=== PATIENT | female | born 1965 | race Caucasian/White ===

== ENCOUNTER 2022-07-22 07:39 | Observation (INO) ==
--- NOTE | 2022-07-02 12:08 | PAT Medication Instructions ---
Medication Instructions Date of Service July 02, 2022 Home Medications Medication Instructions Recorded Auto Titrating CPAP See Rx Instructions .Route 02/28/21 .COMPLEX #1 ea mecobalamin (vitamin B12) 1,000 1,000 mcg sublingual DAILY #30 tabs 12/21/21 mcg disintegrating tablet,sublingual metformin 1,000 mg tablet 1,000 mg PO BID #180 tabs 12/21/21 levothyroxine 125 mcg tablet See Rx Instructions .Route 06/18/22 .COMPLEX #90 tabs losartan 100 See Rx Instructions .Route 06/18/22 mg-hydrochlorothiazide 12.5 mg .COMPLEX #90 tabs tablet pravastatin 20 mg tablet See Rx Instructions .Route 06/18/22 .COMPLEX #90 tabs dulaglutide 1.5 mg/0.5 mL 1.5 mg (0.5 mL) subcut .weekly #2 06/28/22 subcutaneous pen injector mL (Trulicity) meloxicam 15 mg tablet 15 mg PO DAILY #30 tabs 06/28/22 omeprazole 40 mg capsule,delayed 40 mg PO DAILY #30 caps 06/28/22 release pregabalin 75 mg capsule (Lyrica) 75 mg PO BID #60 caps 06/28/22 Auto Titrating CPAP See Rx Instructions mecobalamin (vitamin B12) 1,000 mcg disintegrating tablet,sublingual 1,000 mcg sublingual DAILY metformin 1,000 mg tablet 1,000 mg PO BID levothyroxine 125 mcg tablet See Rx Instructions .Route .COMPLEX losartan 100 mg-hydrochlorothiazide 12.5 mg tablet See Rx Instructions .Route .COMPLEX pravastatin 20 mg tablet See Rx Instructions .Route .COMPLEX dulaglutide 1.5 mg/0.5 mL subcutaneous pen injector (Trulicity) 1.5 mg (0.5 mL) subcut .weekly meloxicam 15 mg tablet 15 mg PO DAILY omeprazole 40 mg capsule,delayed release 40 mg PO DAILY pregabalin 75 mg capsule (Lyrica) 75 mg PO BID Continue as directed levothyroxine 125 mcg tablet See Rx Instructions .Route .COMPLEX pravastatin 20 mg tablet See Rx Instructions .Route .COMPLEX dulaglutide 1.5 mg/0.5 mL subcutaneous pen injector (Trulicity) 1.5 mg (0.5 mL) subcut .weekly ASK your surgeon for instructions meloxicam 15 mg tablet 15 mg PO DAILY DO NOT take the morning of surgery mecobalamin (vitamin B12) 1,000 mcg disintegrating tablet,sublingual 1,000 mcg sublingual DAILY metformin 1,000 mg tablet 1,000 mg PO BID losartan 100 mg-hydrochlorothiazide 12.5 mg tablet See Rx Instructions .Route .COMPLEX Take morning of surgery With a small sip of water, OTHERWISE NOTHING TO EAT OR DRINK AFTER MIDNIGHT: omeprazole 40 mg capsule,delayed release 40 mg PO DAILY pregabalin 75 mg capsule (Lyrica) 75 mg PO BID Take evening before surgery metformin 1,000 mg tablet 1,000 mg PO BID pregabalin 75 mg capsule (Lyrica) 75 mg PO BID Other Notes If you have any questions please call us at [phone] or [phone] or [phone] or [phone]
--- NOTE | 2022-07-10 09:50 | Anesthesiology Consultation ---
Date of Service July 10, 2022 Assessment & Plan (1) Encounter for pre-operative examination: - COVID screening: Per assessment on 07/10: No known COVID-19 positive contacts. Travel screen negative. Patient vaccinated. Patient developed cold symptoms, sore throat, headache, diarrhea 07/06. Symptoms resolved. Covid test done 07/12 at [facility] d/t recent cold symptoms- result was negative. Surgeon arranging preop COVID testing. Awaiting results. - Rheumatology note (07/02/22): "Patient returns for follow-up. Did not tolerate diclofenac from a GI standpoint. Appreciate the assistance of Dr. Guerrier switching to a different NSAID and also initiating a PPI for GI prophylaxis. Patient is scheduled for right total knee replacement in about 3 weeks and will be holding her NSAIDs prior to surgery. Still having some swelling fullness but she notes she points to her MCPs. Looks as if there is fullness between second and third MCPs and on exam appears to have fullness specially around the bilateral third MCPs. We will get her back in after her surgery to review progress with meloxicam and to discuss next steps. Concerned about the need to initiate a DMARD in the near future. I will schedule her back in early August but this appointment can be adjusted based on her recovery from the surgery." - Check BSG AM DOS - Outpatient joint assessment: Pt currently scheduled for inpatient pathway. If surgeon requests review for outpatient joint pathway, patient is not recommended candidate for outpatient joint program from anesthesia standpoint. Chart Review Chart Review: Acceptable Risk for Surgery and Patient seen in Pre Admission Testing Teaching & Discussion Pre-Anesthesia Teaching/Discussion Notes: Instructed NPO after midnight before surgery,except medications with 15 cc of water. Medication instructions provided according to the [facility] guidelines. History Surgery Operation Date: 07/22/22 08:50 Proposed Procedures p Right Total Knee Arthroplasty - Nghia Ashton MD Height/Weight Height: 5 ft 6.5 in Weight: 122 kg Allergies Allergy/AdvReac Type Severity Reaction Status Date / Time adhesive Allergy Intermediate Hives Verified 07/02/22 10:12 latex Allergy Intermediate Hives Verified 07/02/22 10:12 Penicillins Allergy Intermediate Hives Verified 07/02/22 10:12 Medications Home Medications Medication Instructions Recorded Confirmed Last Taken Auto Titrating CPAP See Rx Instructions .Route 02/28/21 07/02/22 Unknown .COMPLEX #1 ea mecobalamin (vitamin B12) 1,000 1,000 mcg sublingual DAILY #30 tabs 12/21/21 07/02/22 Unknown mcg disintegrating tablet,sublingual metformin 1,000 mg tablet 1,000 mg PO BID #180 tabs 12/21/21 07/02/22 Unknown levothyroxine 125 mcg tablet See Rx Instructions .Route 06/18/22 07/02/22 Unknown .COMPLEX #90 tabs losartan 100 See Rx Instructions .Route 06/18/22 07/02/22 Unknown mg-hydrochlorothiazide 12.5 mg .COMPLEX #90 tabs tablet pravastatin 20 mg tablet See Rx Instructions .Route 06/18/22 07/02/22 Unknown .COMPLEX #90 tabs dulaglutide 1.5 mg/0.5 mL 1.5 mg (0.5 mL) subcut .weekly #2 06/28/22 07/02/22 Unknown subcutaneous pen injector mL (Trulicity) meloxicam 15 mg tablet 15 mg PO DAILY #30 tabs 06/28/22 07/02/22 Unknown omeprazole 40 mg capsule,delayed 40 mg PO DAILY #30 caps 06/28/22 07/02/22 Unknown release pregabalin 75 mg capsule (Lyrica) 75 mg PO BID #60 caps 06/28/22 07/02/22 Unknown Past Medical History Medical History Arthritis Per pt, discussion of arthritis type- suspected OA at this time, further w/u to be considered after surgery Diabetes Diabetic neuropathy Feet GERD (gastroesophageal reflux disease) History of COVID-19 01/2022- Mild cold symptoms > resolved Hypercholesterolemia Hypertension Hypothyroidism Morbid obesity Sleep apnea CPAP (non-compliant- has not been using recently) Exercise / Class Metabolic Activity II 4-5 Yardwork/Stairs/Walk up hill (one FS (no CP, no SOB)) Past Family History Family History Grandmother (Maternal) Breast cancer Heart disease Grandmother (Paternal) Breast cancer Myocardial infarction Father Lung cancer Diabetes Hypertension Mother Colonic polyp Hypertension Grandfather (Paternal) Heart disease Myocardial infarction Denies family history of Ovarian cancer Prostate cancer Alzheimer disease Bipolar disorder Depression COPD (chronic obstructive pulmonary disease) Colorectal cancer Stroke Asthma Past Surgical History Surgical History History of abdominoplasty History of back surgery History of section History of colonoscopy History of endometrial ablation History of partial hysterectomy Hx of cholecystectomy Past Anesthesia History No Hx of Anesthesia Complications and No Family Hx of Anesthesia Complications History of PONV No Hx of PONV and No Hx of Motion Sickness Social History Smoking Status: Never smoker Do You Dip or Chew Tobacco: No Hx Alcohol Use: Yes (Rare) Alcohol type: beer, wine and hard liquor Hx Substance Use: No substance use type: does not use Review of Systems Patient denies chest pain, shortness of breath, dyspnea on exertion, fever, chills, cough, wheezing, palpitations. Physical Exam Vital Signs VITALS BP 104/68 P 84 TEMP 98.4 SP02 96%RA RESP 16 PHYSICAL Full cervical extension range of motion. Full TMJ range of motion. TMD 3.5 finger breaths Mallampati Score 3 Dentition: intact Lungs: clear throughout to auscultation Cardiac: regular rate and rhythm, no murmurs noted Spine: normal Carotid arteries: negative bruit Extremities: no edema Lab Results Anesthesia Preop Results Results Anesthesia Widget: WBC 7.44 K/ul (4.8-10.8) 07/10/22 Hgb 12.8 g/dl (12.0-16.0) 07/10/22 Hct 37.5 % (34.1-44.9) 07/10/22 Plt 287 K/uL (130-400) 07/10/22 Na 141 mmol/L (136-145) 07/10/22 K 4.3 mmol/L (3.5-5.1) 07/10/22 Cl 104 mmol/L (98-107) 07/10/22 CO2 29 mmol/L (21-32) 07/10/22 BUN 14 mg/dl (6-23) 07/10/22 Creat 0.91 mg/dl (0.6-1.2) 07/10/22 Glucose Level 153 mg/dl (70-99(Fasting)) H 07/10/22 PT 9.8 Seconds (9.0-12.0) 07/10/22 PTT 25.9 Seconds (21.0-31.0) 07/10/22 INR 0.9 (0.9-1.1) 07/10/22 HA1c 9.0 % (4.5-5.6) H 07/10/22 Blood Type B Positive 07/10/22 Antibody Screen NEGATIVE 07/10/22 Testing Laboratory Results Surgeon's office made aware of elevated A1C* Electrocardiogram Date: 07/10/22 NSR at 84bpm. Low voltage QRS. PRWP, consider anterior VT vs. lead placement vs. LVH. Chest X-Ray Date: 07/10/22 FINDINGS: There is mild elevation of the right hemidiaphragm. Lungs are clear. There is no pneumothorax or pleural effusion. Cardiac size is normal. Mediastinal contours are normal. There is no evidence for pulmonary edema. IMPRESSION: No acute cardiopulmonary findings. COVID-19 Risk Screen Screening Information COVID-19 Screen Date: 07/10/22 Exposure 21 Days Family/Household +COVID Last 21 Days: No Exposure 10 Days Any COVID Exposure Last 10 Days: No Symptoms Last 10 Days Experienced COVID Sx Last 10 Days: Yes + COVID 0-90 Days COVID + in Last 0-90 Days: No
--- NOTE | 2022-07-18 08:38 | History and Physical Report ---
DATE OF ADMISSION: 07/22/2022 CHIEF COMPLAINT: Persistent and progressive right knee pain and discomfort. HISTORY OF PRESENT ILLNESS: The patient is a 57-year-old female who presents for surgical treatment of her right knee. She has a 10-year history of on and off knee pain. She describes it has gotten w orse over time. She initially aggravated this when she was playing some basketball with her kids rec ently. It was not any real strenuous activity, just playing worse. She has been treated over the pa st several months with all modalities of conservative care without much relief. Pain has become more debilitating. It is global pain. She is tired of the knee pain and would like to have it fixed. PAST MEDICAL HISTORY: Significant for: 1. Hypertension. 2. Elevated cholesterol. 3. Sleep apnea with CPAP machine. 4. Diabetes. 5. Hypothyroidism. 6. Obesity, BMI of 42. 7. Gastroesophageal reflux disease. 8. Low back pain/sciatica. PAST SURGICAL HISTORY: Includes: 1. Back surgery. 2. . 3. Colonoscopy. 4. Cholecystectomy. ALLERGIES: LATEX AND PENICILLIN, WHICH CAUSED HIVES. No known bleeding problems. CURRENT MEDICATIONS: Include: 1. Diclofenac. 2. Trulicity. 3. Levothyroxine. 4. Losartan/hydrochlorothiazide. 5. Vitamin B12. 6. Metformin. 7. Pravastatin. 8. Lyrica. 9. Shingrix vaccine. SOCIAL HISTORY: A 57-year-old female. She is from [place]. She is . One drink per week. Does not smoke. FAMILY HISTORY: Noncontributory. REVIEW OF SYSTEMS: Significant for diabetes. She has been struggling to get this under better contr ol. No chest pain or shortness of breath. No history of DVT or PE. No known bleeding problems. PHYSICAL EXAMINATION: GENERAL: Shows a pleasant middle-aged female, looks in reasonably good health. HEENT: Benign. NECK: Supple. No lymphadenopathy. LUNGS: Clear to auscultation. HEART: Regular rate and rhythm. ABDOMEN: Soft, nontender, nondistended. EXTREMITIES: Grossly neurovascularly intact except as follows: Examination of the right knee reveal s a patient walks with slight bit of a limp. She has got slight varus alignment to her knee. Modera te soft tissue envelope. Small knee effusion. Range of motion is 5-120. No instability. No pain w ith hip motion. X-RAYS: X-rays of the right knee were reviewed. It shows advanced right knee DJD. She has got a co mplete loss of medial joint space with osteophytes in all 3 compartments. ASSESSMENT: A 57-year-old female with a 10-year history of progressive increased right knee pain, un responsive to conservative treatment. She would like to have this fixed. She does have multiple med ical comorbidities including diabetes, hypertension, elevated cholesterol, sleep apnea, hypothyroidis m, etc. She is working to get her diabetes under better control. She would like to have her knee fi xed. PLAN: We will take her to the operating room and do right total knee replacement. The risks and babita efits of this procedure were explained to the patient and include but not limited to DVT, PE, , infection, neurological injury, vascular injury, bleeding problem, pain, limited range of motion, sti ffness, failure to relieve her symptoms, incomplete relief of symptoms, need for further surgery in t he future, etc. The patient understands and desires to proceed. Informed consent was obtained. She knows to hold her metformin, diclofenac, and hydrochlorothiazide on the morning of surgery. She is to take the levothyroxine with a sip of water. Bring her CPAP machine to the hospital. Job ID: [id number]
[~2022-07-22 07:39] MED LIST: ACETAMINOPHEN 500 MG TAB PO SCH; ALLERGY Noted to ORDERED Medication SCH; BUPIVACAINE 0.5 % 5 MG/1 ML PF 10ML VIAL ONE; BUPIVACAINE LIPOSOME/PF 266 MG, BUPIVACAINE/EPINEPHRINE 50 ML, SODIUM CHLORIDE 0.9% 30 ... INFIL SCH; CeleBREX 200 MG CAP PO SCH; EPINEPHrine INJ 1 MG/ML AMP ONE; FAMOTIDINE 20 MG TAB PO SCH; LR 500ML BOLUS, THEN 15ML/HR IV SCH; LR 60ML/HR IV SCH; METOCLOPRAMIDE HCL 10 MG TABLET PO SCH; ROPIVACAINE 0.5% 5 MG/ML 30 ML VIAL ONE; Scopolamine 1 MG TDSY TD SCH; TRANEXAMIC ACID 1,000 MG **IV Intra-op IV SCH; ceFAZolin 2000MG 2,000 MG/15 ML SYR IV SCH
--- NOTE | 2022-07-22 08:33 | History & Physical Bridge Note ---
Date of Service July 22, 2022 History & Physical Bridge Note I have examined the patient, reviewed the History & Physical and in the interval since the performance of the History & Physical I have noted the following changes of clinical significance: no changes noted
[2022-07-22] MEDS ORDERED: Nursing to Pharmacy Communication SCH (08:45)
[2022-07-22] MEDS ORDERED: fentaNYL citrate 100 MCG/2 ML VIAL ONE (09:18)
[2022-07-22] MEDS ORDERED: MIDAZOLAM HCL 1 MG/ML 2ML VIAL ONE (09:18)
[2022-07-22] MEDS ORDERED: PROPOFOL IV EMULSION 10 MG/ML 20 ML VIAL IV ONE ×3 (09:18→12:00)
[2022-07-22] MEDS ORDERED: BUPIVACAINE/EPINEPHRINE 0.25% 1:200,000 30 ML VIAL ONE (10:24)
[2022-07-22] MEDS ORDERED: SODIUM CHLORIDE 0.9% PF 50 ML VIAL ONE (10:24)
[2022-07-22] MEDS ORDERED: BUPIVACAINE LIPOSOME 1.3% 266 MG/20 ML VIAL ONE (10:24)
[2022-07-22] MEDS ORDERED: ceFAZolin 330 MG/ML 1 GM VIAL ONE (10:55)
[2022-07-22] MEDS ORDERED: PHENYLEPHRINE 100MCG/ML 5ML SYR ONE (11:02)
[2022-07-22] MEDS ORDERED: ONDANSETRON INJ 2 MG/ML 2 ML VIAL ONE (11:21)
[2022-07-22] MEDS ORDERED: KETAMINE 50 MG/5 ML SYRINGE ONE (11:21)
[2022-07-22] MEDS ORDERED: GLYCOPYRROLATE 0.2 MG/ML VIAL ONE (11:21)
[2022-07-22] MEDS ORDERED: ceFAZolin 1000MG 1,000 MG/7.5 ML SYR IV ONE (11:47)
[2022-07-22] MEDS ORDERED: ONDANSETRON INJ 2 MG/ML 2 ML VIAL IV PRN (12:44)
[2022-07-22] MEDS ORDERED: FLUMAZENIL 0.1 MG/1 ML 10 ML VIAL IV PRN (12:44)
[2022-07-22] MEDS ORDERED: HYDROmorphone INJ 1 MG/ML SYRINGE IV PRN (12:44)
[2022-07-22] MEDS ORDERED: NALOXONE HCL 0.4 MG/1 ML VIAL/CARP IV PRN ×2 (12:44→14:16)
[2022-07-22] MEDS ORDERED: fentaNYL citrate 100 MCG/2 ML VIAL IV PRN (12:44)
[2022-07-22] MEDS ORDERED: PROMETHAZINE HCL 12.5 MG in SODIUM CHLORIDE 0.9% 50 ML IV PRN (12:44)
[2022-07-22] MEDS ORDERED: ATROPINE SULFATE 0.1 MG/ML 10ML SYR IV PRN (12:44)
[2022-07-22] MEDS ORDERED: ePHEDrine sulfate 50 MG/ML AMP IV PRN (12:44)
--- NOTE | 2022-07-22 12:47 | Operative Report ---
PG Post Operative Report Pre & Post Diagnosis Operation Date: 07/22/22 10:40 Pre-Op Diagnosis: Right knee degenerative joint disease. Post-Op Diagnosis: Right knee degenerative joint disease. I identified the patient and participated in the time-out.: Yes Procedure Operation Date: 07/22/22 10:40 Actual Procedures p Right Total Knee Arthroplasty - Nghia Ashton MD Surgeon Nghia Ashton MD Integration Director Drew Valle PA-C Estimated Blood Loss 50 Findings Consistent with Post-Op Diagnosis Operative findings revealed advanced right knee medial compartment DJD. She had grade 4 [id number] disease medially. She can swallow grade 4 changes elsewhere. Moderate-sized joint effusion. Large soft tissue envelope. Fluids 1500 cc Specimens Right knee sent for pathology. Drains None Anesthesia Type Spinal MAC Complications none Disposition Accompanied Patient To Recovery: No Indications Patient is a 57-year-old female said a long history of right knee pain discomfort describes gotten worse over time patient been to extensive conservative treatment the past which became less successful over time. X-rays show moderate to advanced knee arthritis. She was a markedly debilitated by her disease and elected proceed with surgical treatment. Description of Procedure Operative implants consist of: 1 Biomet Vanguard size 62.5 right posterior stabilized femoral component. 2. Biomet size 67 tibial tray. 3. 12 mm posterior stabilized polyethylene insert. 4. 28 x 8 all Paller patella. The patient was taken the operating, identified, and placed on the operating table supine position but all contact areas were appropriately padded. IV antibiotics tried by anesthesia team. A spinal anesthetic and abductor canal block had been provided in the holding area. Herndon catheter was placed in sterile fashion. Right Tetrick was then placed in the right lower extremities and prepped and draped in usual sterile fashion. The right leg was elevated exsanguinated with use of an Esmarch and the tourniquet was set at 300 mmHg. An anterior approach to the right knee was then performed through a longitudinal incision centered over the patella. Sharp dissection was carried through subcutaneous tissue down the extensor mechanism. Medial parapatellar arthrotomy incision was made. Some subperiosteal dissection was carried out medially. The fat pad was resected from Neath patella tendon. Lateral patellofemoral ligament was released. Patella subluxated laterally. The knee was flexed. The osteophytes taken off distal femur. ACL and PCL then released from the distal femur the tibia subluxated anteriorly. External tibial alignment jig was then placed in the interface the tibia and adjusted 14 mm medially. The proximal tibial cut was made remove about 2 to 3 mm of bone from the most deficient aspect medial tibial plateau. Proximal tibial cut was made. The tibia was sized to a size 67. Attention drawn the femur. The distal femur stem with a sharp drop with intramedullary canal was suction. A right 5 degree valgus cutting guide was placed. Distal femoral cutting block was pinned in place. The distal femoral cut was made to take an additional 3 mm of bone off distal femur. The femur was then sized to a size 62.5. The AP cutting block was pinned parallel to the epicondylar axis which was 3 degrees of external rotation. Anterior cut, anterior chamfer, posterior cut, posterior chamfer cuts were made through the box cutting guide was placed in just slight lateral box cut was made. The trial femoral component was placed. The tibial tray was pinned in maximum external rotation and the drill and stem punch used to create defect in proximal tibia for the tibial tray. The knee was then trialed and 12 mm insert fit most appropriately. Attention drawn the patella. The patella was cleaned of all soft tissues. Patella thickness measured about 20 mm in thickness and was cut down to 12. It was sized to a size 28 patella. The lug holes were drilled for the 28 patella. The lateral osteophyte was removed. Patella button was placed. Knee was taken through range of motion patella tracked nicely with no thumbs test. Attention drawn to place the permanent components. Nupathe all trial components were removed. Bone plug was placed in the distal femur limit blood loss. Double batch Palacos G cement was mixed. A Biomet Vanguard size 62.5 right posterior stabilized femoral component, size 67 tibial tray, 12 mm posterior stabilized polyethylene insert, 31 x 8 all Paller patella were then cemented in place. Knee was brought out into full extension total cement hardened. Final cement check was then performed. Pericapsular tissues were injected with total 100 cc of combination of 20 cc of Exparel, 30 cc of normal saline, 50 cc of quarter percent Marcaine with epinephrine. Patient did receive 1 g tranexamic acid. The tourniquet was let down for final turn time 56 minutes. Hemostasis reduced electrocautery. Extensor mechanism closed with combination 1 PDS suture and 1 Vicryl suture in [id number] fashion. Extensor mechanism checked found to be intact and subcutaneous tissue then closed with 2 Dexon suture in a buried interrupted fashion. Skin was closed skin mari. Leg was then cleaned and dried and a sterile dressing was Xeroform, 4 x 4's, sterile cast padding, Leroy bandage were applied. The patient was then transferred to the recovery room in stable condition. The patient tolerated procedure well and there were no complications. Drew Valle, my physician podiatry assistant, was present for the entire procedure. His assistance was essential and required for appropriate patient positioning, prepping and draping, surgical exposure, performing the technical details of the operation, placement the implants, closure of the wound, and placement of the sterile bandage. I attest to the content of the Intraoperative Record and any orders documented therein. Any exceptions are noted below.
--- NOTE | 2022-07-22 13:52 | Anesthesiology Progress Note ---
Date of Service July 22, 2022 Anesthesia Post Procedure Vital Signs Vital Signs: Temp Pulse Pulse Resp BP BP Pulse Ox 07/22/22 13:35 89 15 162/90 H 94 07/22/22 13:45 36.5 C 90 14 133/84 98 07/22/22 13:25 80 12 122/84 97 07/22/22 13:15 84 15 111/79 97 07/22/22 13:05 88 14 130/89 97 07/22/22 12:55 82 12 130/97 100 07/22/22 12:45 94 H 15 110/76 99 07/22/22 12:36 36.0 C L 97 H 12 128/64 97 07/22/22 08:00 36.6 C 85 18 149/108 H 94 07/22/22 08:00 O2 Del Method O2 Flow Rate 07/22/22 13:35 Room Air 07/22/22 13:45 Room Air 07/22/22 13:25 Room Air 07/22/22 13:15 Room Air 07/22/22 13:05 Room Air 07/22/22 12:55 Oxymask 6 07/22/22 12:45 Oxymask 6 07/22/22 12:36 Oxymask 6 07/22/22 08:00 Room Air, CPAP 07/22/22 08:00 Room Air, CPAP Pain Intensity Right Knee: Pain Intensity: 0 Transfer of Care Handoff Completed per policy Notes Mental Status: alert / awake / arousable Patient Amnestic to Procedure: Yes Nausea / Vomiting: adequately controlled Pain: adequately controlled Airway Patency, RR, SpO2: stable & adequate BP & HR: stable & adequate Hydration State: stable & adequate Neuraxial Anesthesia: was administered and sensory block is resolving Anesthetic Complications: no major complications apparent
[2022-07-22] MEDS ORDERED: DEXTROSE 50% 50 ML SYRINGE IV PRN (14:16)
[2022-07-22] MEDS ORDERED: NON-FORMULARY MEDICATION (Dulaglutide [Trulicity] 1.5 mg/0.5 mL pen injector) SQ SCH (14:16)
[2022-07-22] MEDS ORDERED: CARBOHYDRATES FOR HYPOGLYCEMIA PO PRN (14:16)
[2022-07-22] MEDS ORDERED: GLUCAGON FOR INJ 1 MG VIAL SQ PRN (14:16)
[2022-07-22] MEDS ORDERED: bisacodyL 10 MG SUPP PR PRN (14:16)
[2022-07-22] MEDS ORDERED: GLUCOSE 40% GEL 15 GM TUBE PO PRN (14:16)
[2022-07-22] MEDS ORDERED: PHARMACY GLYCEMIC MGMT CONSULT PRN (14:16)
[2022-07-22] MEDS ORDERED: MAGNESIUM HYDROXIDE SUSP 30 ML UDC PO PRN (14:16)
[2022-07-22] MEDS ORDERED: NON-FORMULARY MEDICATION (Auto Titrating Cpap misc) SCH (14:16)
[2022-07-22] MEDS ORDERED: GLUCOSE 10 TAB/TUBE PO PRN (14:16)
[2022-07-22] MEDS ORDERED: ALUMINUM/MAGNESIUM SUSP 30 ML UDC PO PRN (14:16)
[2022-07-22] MEDS ORDERED: HYDROmorphone INJ 0.5 MG/0.5 ML SYR IV PRN (14:16)
[2022-07-22] MEDS ORDERED: METOCLOPRAMIDE HCL INJ 5 MG/ML 2 ML VIAL IV PRN (14:16)
--- NOTE | 2022-07-22 14:37 | XRay Report ---
XR knee RT 1 or 2V routine CLINICAL HISTORY: Surgical Post Op COMPARISON: MRI of the right knee June 13, 2022. FINDINGS: Alignment of the total right knee arthroplasty is anatomic. There is no periprosthetic fra cture or unexpected radiopaque foreign body. Skin mari are noted. IMPRESSION: Expected findings following total right knee arthroplasty. ACT 112: Negative or not required by law. Electronically signed by: Abhishek Castanon M.D. 07/22/2022 2:35 PM
--- NOTE | 2022-07-22 14:46 | Pharmacy Report ---
Pharmacy Glycemic Short Note 2 - Date of Service July 22, 2022 - Glycemic Short BSG Results (Last 24 hours): 07/22/22 07/22/22 07/22/22 07:58 12:38 14:31 POC Glucose 138 H 110 H 100 H OUTPATIENT ANTIDIABETIC REGIMEN: * Metformin 1g BID * Trulicity 1.5 mg SC weekly * A1c: 9% 07/10/22 ASSESSMENT: * Patient admitted s/p R TKA * Both preop (138 mg/dL) and post op BSGs (110-100 mg/dL) acceptable * Will add a moderate stress novolog scale and conservative lantus scale PLAN FOR INPATIENT GLYCEMIC CONTROL: * Hold outpatient oral diabetes medications * Basal insulin * Lantus per scale SQ this evening (10 units to be given if BSG >160) * Bolus insulin * NovoLog per scale ACHS or Q6hrs while NPO * Goal Range: Low 110 mg/dL - High 140 mg/dL * Correction Factor: 25 mg/dL/unit * Nutritional / Prandial insulin per carb ratio of 1 unit per 8 grams CHO consumed
[2022-07-22] MEDS: INSULIN ASPART PER UNIT SC SCH ×3 (14:48→20:39)
[2022-07-22] MEDS ORDERED: KETOROLAC 30 MG/ML VIAL ONE (14:49)
[2022-07-22] MEDS: ACETAMINOPHEN 500 MG TAB PO SCH ×2 (14:50→21:56)
[2022-07-22] MEDS: KETOROLAC 30 MG/ML VIAL IV SCH ×2 (14:50→19:49)
[2022-07-22] MEDS: SODIUM CHLORIDE 0.9% 1000ML 1,000 ML IV SCH (15:34)
[2022-07-22] MEDS: Scopolamine CHECK PATCH PLACEMENT SCH (15:37)
[2022-07-22] MEDS: oxyCODONE HCL IR 5 MG TAB (IMMEDIATE RELEASE) PO PRN (15:56)
[2022-07-22] MEDS: LEVOTHYROXINE SODIUM 125 MCG TABLET PO SCH (17:07)
[2022-07-22] MEDS: ASCORBIC ACID 500 MG TAB PO SCH (17:08)
[2022-07-22] MEDS: ceFAZolin 2000MG 2,000 MG/15 ML SYR IV SCH (18:07)
[2022-07-22] MEDS ORDERED: TRANEXAMIC ACID / 0.7% NACL 1,000 MG/100 ML BAG IV SCH (18:45)
[2022-07-22] MEDS: SENNA 8.6 MG TAB PO SCH (19:50)
[2022-07-22] MEDS: DOCUSATE SODIUM/SENNA 50/8.6MG TAB PO SCH (19:50)
[2022-07-22] MEDS: ASPIRIN 81 MG ECTAB PO SCH (19:50)
[2022-07-22] MEDS: diphenhydrAMINE Capsule 25 MG CAP PO PRN (19:55)
[2022-07-22] MEDS: LANTUS PER UNIT CHARGE SQ SCH (20:39)
[2022-07-22] MEDS: TAPENTADOL HCL ER 50 MG TABCR PO SCH (20:49)
[2022-07-22] MEDS: PREGABALIN 75 MG CAP PO SCH (20:49)
[2022-07-22] MEDS ORDERED: DOCUSATE SODIUM 100 MG CAP PO SCH (21:00)
[2022-07-23] MEDS: KETOROLAC 30 MG/ML VIAL IV SCH ×4 (00:57→20:03)
[2022-07-23] MEDS: oxyCODONE HCL IR 5 MG TAB (IMMEDIATE RELEASE) PO PRN ×2 (00:57→10:38)
[2022-07-23] MEDS: Scopolamine CHECK PATCH PLACEMENT SCH ×3 (00:57→15:05)
[2022-07-23] MEDS: SODIUM CHLORIDE 0.9% 1000ML 1,000 ML IV SCH (03:01)
[2022-07-23] MEDS: ceFAZolin 2000MG 2,000 MG/15 ML SYR IV SCH (03:01)
[2022-07-23] MEDS: diphenhydrAMINE Capsule 25 MG CAP PO PRN ×2 (05:22→21:37)
[2022-07-23] MEDS: ACETAMINOPHEN 500 MG TAB PO SCH ×3 (05:22→21:37)
[2022-07-23 07:18] LABS: Hematocrit (blood only) 31.7 % (34.1-44.9); Hemoglobin 10.8 g/dl (12.0-16.0); Mean Corpuscular Hemoglobin 31.2 pg (25.0-34.0); Mean Corpuscular Hgb Conc 34.1 g/dL (32.0-36.0); Mean Corpuscular Volume 91.6 fL (80.0-100.0); Mean Platelet Volume 10.5 fL (9.4-12.3); Platelet Count 215 K/uL (130-400); RDW Coefficient of Variation 13.2 % (11.5-14.5); RDW Standard Deviation 43.9 fL (36.4-46.3); Red Blood Count 3.46 M/uL (3.93-5.22); White Blood Count 6.42 K/ul (4.8-10.8)
[2022-07-23] MEDS: ONDANSETRON INJ 2 MG/ML 2 ML VIAL IV PRN (07:35)
[2022-07-23 07:39] LABS: BUN Creatinine Ratio 15.8 (10-20); Calcium 7.9 mg/dl (8.5-10.1); Creatinine Clr Calc Pharmacy 82.9 ml/min; Est GFR (African American) 72.6 ml/min; Est GFR (Non-African American) 62.6 ml/min; Potassium 4.3 mmol/L (3.5-5.1)
[2022-07-23] MEDS: MULTIVITAMIN TAB PO SCH (08:17)
[2022-07-23] MEDS: TAPENTADOL HCL ER 50 MG TABCR PO SCH ×2 (08:17→20:03)
[2022-07-23] MEDS: PREGABALIN 75 MG CAP PO SCH ×2 (08:17→20:03)
[2022-07-23] MEDS: ASPIRIN 81 MG ECTAB PO SCH ×2 (08:17→20:03)
[2022-07-23] MEDS: LEVOTHYROXINE SODIUM 125 MCG TABLET PO SCH (08:18)
[2022-07-23] MEDS: DOCUSATE SODIUM/SENNA 50/8.6MG TAB PO SCH ×2 (08:18→20:04)
[2022-07-23] MEDS: hydroCHLOROthiazide 25 MG TAB PO SCH (08:18)
[2022-07-23] MEDS: PRAVASTATIN SOD 40 MG TAB PO SCH (08:18)
[2022-07-23] MEDS: ASCORBIC ACID 500 MG TAB PO SCH ×2 (08:18→16:35)
[2022-07-23] MEDS: LOSARTAN POTASSIUM 50 MG TAB PO SCH (08:19)
[2022-07-23] MEDS: PANTOprazole 40 MG TAB PO SCH (08:19)
[2022-07-23] MEDS: CYANOCOBALAMIN (B-12) 500 MCG TABLET PO SCH (08:19)
[2022-07-23] MEDS: INSULIN ASPART PER UNIT SC SCH ×4 (09:19→21:00)
--- NOTE | 2022-07-23 14:00 | Progress Notes ---
DATE OF SERVICE: 07/23/2022 SUBJECTIVE: A 57-year-old white female postoperative day 1 from a right knee replacement. She is do ing okay. Had a reasonable night. Having a moderate amount of pain, but the pain medicine seems to be working. She did get up and ambulate a little bit last evening. No chest pain or shortness of br eath. Not feeling dizzy or lightheaded. OBJECTIVE: VITAL SIGNS: Temperature 36.5. Vital signs are stable. PHYSICAL EXAMINATION: GENERAL: Shows a pleasant middle-aged female. She is sitting up in bed, looks reasonably comfortabl e. LUNGS: Clear to auscultation. HEART: Regular rate and rhythm. ABDOMEN: Soft, nontender, nondistended. EXTREMITIES: Grossly neurovascularly intact except as follows: Examination of the right leg reveals the dressing to be clean, dry and intact. She can dorsiflex and plantarflex her foot appropriately. She is neurologically intact. LABORATORY DATA: Hemoglobin 10.8. Hematocrit 31.7. Electrolytes are stable. Sodium is just a cayla le bit low at 132. ASSESSMENT: A 57-year-old white female postoperative day 1 from a right knee replacement, doing reas onably well. Having a moderate amount of pain, but nothing out of the ordinary. She is neurological ly intact. PLAN: 1. DVT prophylaxis includes thigh-high TEDs, SCDs, and aspirin twice a day. 2. PT/OT, weightbear as tolerated. Right total knee protocol. 3. Pain control, doing okay with current pain regimen. 4. Disposition: She is hoping to be discharged to home with some home health. She would like to st ay another day for pain control and therapy. Hopefully, discharge tomorrow after therapy. Job ID: [id number]
[2022-07-23] MEDS ORDERED: Nursing to Pharmacy Communication SCH (15:15)
[2022-07-23] MEDS ORDERED: POLYETHYLENE (MIRALAX) 17 GM PACK PO ONE (18:15)
[2022-07-23] MEDS: SENNA 8.6 MG TAB PO SCH (20:04)
[2022-07-23] MEDS: LANTUS PER UNIT CHARGE SQ SCH (21:02)
[2022-07-24] MEDS: oxyCODONE HCL IR 5 MG TAB (IMMEDIATE RELEASE) PO PRN ×2 (00:16→12:08)
[2022-07-24] MEDS: KETOROLAC 30 MG/ML VIAL IV SCH ×3 (04:00→08:18)
[2022-07-24] MEDS: diphenhydrAMINE Capsule 25 MG CAP PO PRN (04:00)
[2022-07-24] MEDS: ACETAMINOPHEN 500 MG TAB PO SCH (06:14)
[2022-07-24] MEDS: DOCUSATE SODIUM/SENNA 50/8.6MG TAB PO SCH (08:04)
[2022-07-24] MEDS: ONDANSETRON INJ 2 MG/ML 2 ML VIAL IV PRN (08:07)
[2022-07-24] MEDS ORDERED: POLYETHYLENE (MIRALAX) 17 GM PACK PO SCH (09:00)
[2022-07-24] MEDS: hydroCHLOROthiazide 25 MG TAB PO SCH (09:19)
[2022-07-24] MEDS: ASPIRIN 81 MG ECTAB PO SCH (09:20)
[2022-07-24] MEDS: MULTIVITAMIN TAB PO SCH (09:20)
[2022-07-24] MEDS: PRAVASTATIN SOD 40 MG TAB PO SCH (09:20)
[2022-07-24] MEDS: PREGABALIN 75 MG CAP PO SCH (09:20)
[2022-07-24] MEDS: LEVOTHYROXINE SODIUM 125 MCG TABLET PO SCH (09:20)
[2022-07-24] MEDS: ASCORBIC ACID 500 MG TAB PO SCH (09:20)
[2022-07-24] MEDS: CYANOCOBALAMIN (B-12) 500 MCG TABLET PO SCH (09:20)
[2022-07-24] MEDS: LOSARTAN POTASSIUM 50 MG TAB PO SCH (09:20)
[2022-07-24] MEDS: PANTOprazole 40 MG TAB PO SCH (09:20)
[2022-07-24] MEDS: TAPENTADOL HCL ER 50 MG TABCR PO SCH (09:22)
[2022-07-24] MEDS: INSULIN ASPART PER UNIT SC SCH (09:23)
--- NOTE | 2022-07-24 09:58 | Progress Notes ---
DATE OF SERVICE: 07/24/2022. SUBJECTIVE: A 57-year-old female, postoperative day 2 from right knee replacement. She is doing muc h better today. Pain is improved. Therapy went pretty well. She is hoping to go home. OBJECTIVE: VITAL SIGNS: Temperature 36.6. Vital signs are stable. PHYSICAL EXAMINATION: GENERAL: Shows a pleasant middle-aged female. She is sitting in her bedside chair, looks completely comfortable. EXTREMITIES: Examination of the right leg reveals the dressing to be clean, dry and intact. No sign ificant drainage. She can do a straight leg raise. She is neurologically intact. ASSESSMENT: A 57-year-old white female, postoperative day 2 from a right knee replacement, doing wel l. She is getting around a lot better. Pain is controlled. PLAN: 1. DVT prophylaxis including thigh-high TEDs, SCDs, and aspirin twice a day. 2. PT, OT, weightbear as tolerated. Right total knee protocol. 3. Pain control, doing okay with current pain regimen. 4. Disposition: Plan to discharge to home with some home health later today if she does okay in the rapy. Job ID: [id number]
--- NOTE | 2022-07-27 17:32 | Discharge Summary ---
Date of Service July 27, 2022 Discharge Data Procedures Performed Operation Date: 07/22/22 10:40 Actual Procedures p Right Total Knee Arthroplasty - Nghia Ashton MD Hospital Course (1) Status post total right knee replacement: Plan This is a 57 year old patient admitted on 07/22/22 and underwent total knee arthroplasty. She tolerated the procedure well and there were no complications. Transferred to the PACU post op and later to the orthopedic floor for further care. She was given ancef for antibiotic prophylaxis. She was also given MARY stockings, SCDs, and aspirin for DVT prophylaxis. Hemoglobin, hematocrit, and vital signs were monitored during her hospital stay and remained stable. Did not require any blood transfusions. There were no complications during her hospital stay. By post op day #2 the patient was tolerating a diabetic diet, pain was reasonably controlled with oral pain medicine, and she was participating in physical therapy. On post op day #2 the patient was discharged home and set up with home health care. She was given printed discharge instructions including prescriptions for extra strength tylenol, aspirin, ketorolac, zofran, senokot, and oxycodone. Continue physical therapy, weight bearing as tolerated. Continue MARY stockings. Follow up approximately 2 weeks post op or sooner if there are problems or concerns. Coding Level of Care Code None Diagnoses Status post total right knee replacement Z96.651
== END 2022-07-24 12:47 | disposition home health service (06) ==
LOC: PACUINP 07:39 → ASU 07:39 → 3E 15:19
DX: Z68.41 Body mass index [BMI] 40.0-44.9, adult; Z01.818 Encounter for other preprocedural examination; Z79.890 Hormone replacement therapy; Z91.048 Other nonmedicinal substance allergy status; Z01.810 Encounter for preprocedural cardiovascular examination; Z20.822 Contact with and (suspected) exposure to COVID-19; Z79.899 Other long term (current) drug therapy; E78.00 Pure hypercholesterolemia, unspecified; Z79.84 Long term (current) use of oral hypoglycemic drugs; Z91.040 Latex allergy status; M17.11 Unilateral primary osteoarthritis, right knee; Z88.0 Allergy status to penicillin; E66.9 Obesity, unspecified; Z01.812 Encounter for preprocedural laboratory examination; E11.8 Type 2 diabetes mellitus with unspecified complications

== ENCOUNTER 2025-03-09 06:27 | Observation (INO) ==
--- NOTE | 2025-02-10 12:31 | PAT Medication Instructions ---
Medication Instructions Date of Service February 10, 2025 Home Medications Medication Instructions Recorded Auto Titrating CPAP See Rx Instructions .Route 02/28/21 .COMPLEX #1 ea cyanocobalamin (vitamin B-12) 1,000 mcg PO DAILY #90 tabs 01/02/23 1,000 mcg tablet diclofenac sodium 3 % topical gel 1 applic topical BID #100 grams 08/15/23 pen needle, diabetic 32 gauge x #100 ea 03/03/24 5/32" (BD Ultra-Fine Thelma Pen Needle) hydrocodone 5 mg-acetaminophen 325 1 tab PO TID #21 tabs 07/05/24 mg tablet Lantus Solostar U-100 Insulin 100 See Rx Instructions .Route 08/06/24 unit/mL (3 mL) subcutaneous pen .COMPLEX #15 mL (insulin glargine) aspirin 81 mg chewable tablet See Rx Instructions .Route 10/28/24 .COMPLEX #90 tabs Medium Res Med Sleep apnea mask #1 ea 11/02/24 nirmatrelvir 300 mg (150 mg See Rx Instructions PO .COMPLEX 11/15/24 x2)-ritonavir 100 mg tablet,dose #30 ea pack (Paxlovid) blood-glucose sensor (FreeStyle #6 ea 01/07/25 Yumi 3 Sensor device) bupropion HCl 200 mg tablet,12 hr See Rx Instructions .Route 01/07/25 sustained-release .COMPLEX #180 ea fluticasone propionate 50 2 spray intranasal HS #9.9 grams 01/07/25 mcg/actuation nasal spray,suspension (Allergy Relief (fluticasone)) levothyroxine 125 mcg tablet See Rx Instructions .Route 01/07/25 .COMPLEX #90 tabs losartan 100 1 tab PO DAILY #90 tabs 01/07/25 mg-hydrochlorothiazide 25 mg tablet omeprazole 40 mg capsule,delayed 40 mg PO DAILY #90 caps 01/07/25 release pregabalin 75 mg capsule (Lyrica) 75 mg PO BID #180 caps 01/07/25 rosuvastatin 5 mg tablet 5 mg PO DAILY #90 tabs 01/07/25 semaglutide 2 mg/dose (8 mg/3 mL) 2 mg (0.75 mL) subcut WK #9 mL 01/07/25 subcutaneous pen injector trazodone 50 mg tablet 100 mg (2 x 50 mg) PO HS #180 tabs 01/07/25 cyanocobalamin (vitamin B-12) 1,000 mcg tablet 1,000 mcg PO DAILY diclofenac sodium 3 % topical gel 1 applic topical BID hydrocodone 5 mg-acetaminophen 325 mg tablet 1 tab PO TID Lantus Solostar U-100 Insulin 100 unit/mL (3 mL) subcutaneous pen (insulin glargine) See Rx Instructions .Route .COMPLEX aspirin 81 mg chewable tablet See Rx Instructions .Route .COMPLEX nirmatrelvir 300 mg (150 mg x2)-ritonavir 100 mg tablet,dose pack (Paxlovid) See Rx Instructions PO .COMPLEX bupropion HCl 200 mg tablet,12 hr sustained-release See Rx Instructions .Route .COMPLEX fluticasone propionate 50 mcg/actuation nasal spray,suspension (Allergy Relief (fluticasone)) 2 spray intranasal HS levothyroxine 125 mcg tablet See Rx Instructions .Route .COMPLEX losartan 100 mg-hydrochlorothiazide 25 mg tablet 1 tab PO DAILY omeprazole 40 mg capsule,delayed release 40 mg PO DAILY pregabalin 75 mg capsule (Lyrica) 75 mg PO BID rosuvastatin 5 mg tablet 5 mg PO DAILY semaglutide 2 mg/dose (8 mg/3 mL) subcutaneous pen injector 2 mg (0.75 mL) subcut WK trazodone 50 mg tablet 100 mg (2 x 50 mg) PO HS creatine monohydrate 1 dose PO DAILY ASK your prescriber and surgeon aspirin 81 mg chewable tablet See Rx Instructions .Route .COMPLEX nirmatrelvir 300 mg (150 mg x2)-ritonavir 100 mg tablet,dose pack (Paxlovid) See Rx Instructions PO .COMPLEX STOP 7 days prior to surgery semaglutide 2 mg/dose (8 mg/3 mL) subcutaneous pen injector 2 mg (0.75 mL) subcut WK STOP taking 2 weeks before surgery (or as soon as possible if surgery is within 2 weeks) creatine monohydrate 1 dose PO DAILY STOP taking 24 hours before surgery diclofenac sodium 3 % topical gel 1 applic topical BID DO NOT take the morning of surgery cyanocobalamin (vitamin B-12) 1,000 mcg tablet 1,000 mcg PO DAILY losartan 100 mg-hydrochlorothiazide 25 mg tablet 1 tab PO DAILY Take morning of surgery With a small sip of water, OTHERWISE NOTHING TO EAT OR DRINK AFTER MIDNIGHT: hydrocodone 5 mg-acetaminophen 325 mg tablet 1 tab PO TID bupropion HCl 200 mg tablet,12 hr sustained-release See Rx Instructions .Route .COMPLEX levothyroxine 125 mcg tablet See Rx Instructions .Route .COMPLEX omeprazole 40 mg capsule,delayed release 40 mg PO DAILY pregabalin 75 mg capsule (Lyrica) 75 mg PO BID rosuvastatin 5 mg tablet 5 mg PO DAILY Take evening before surgery hydrocodone 5 mg-acetaminophen 325 mg tablet 1 tab PO TID bupropion HCl 200 mg tablet,12 hr sustained-release See Rx Instructions .Route .COMPLEX fluticasone propionate 50 mcg/actuation nasal spray,suspension (Allergy Relief (fluticasone)) 2 spray intranasal HS pregabalin 75 mg capsule (Lyrica) 75 mg PO BID trazodone 50 mg tablet 100 mg (2 x 50 mg) PO HS Insulin Dependent Diabetic Patients * Test your blood sugar the morning of surgery * Further instructions to be provided at upcoming PAT visit depending on Lantus (insulin glargine) frequency/timing. Other Notes If you have any questions please call us at [phone] or [phone] or [phone] or [phone]
--- NOTE | 2025-02-16 10:43 | Anesthesiology Consultation ---
Date of Service February 16, 2025 Assessment & Plan (1) Encounter for pre-operative examination: Chart Review Chart Review: Acceptable Risk for Surgery and Patient seen in Pre Admission Testing - Check BSG AM DOS Patient with CGM to upper extremity - Discussed case with Dr. Canas- no further work up or follow up is needed in regards to cardiac status. - Ozempic instructions: Patient takes on (Wednesdays). Patient informed at PAT visit to stop 7 days prior to surgery- voiced understanding. Last dose of Ozempic scheduled 03/02/25- will be off Ozempic x 7 days by DOS on 03/09/25 - Patient is NOT an ideal OPJ candidate- currently 23 hour obs Per PAT appt on 02/16/25, no recent illness/disease exposures, illness related symptoms, or recent illness/disease positive tests. Will leave to surgeon's discretion if preop Covid testing needed Right TKA 07/22/22= Done under SAB at L3-4 x 3 attempts. Teaching & Discussion Pre-Anesthesia Teaching/Discussion Notes: Instructed NPO after midnight before surgery,except medications with 15 cc of water. Medication instructions provided according to the PAT guidelines. History Surgery Operation Date: 03/09/25 12:30 Proposed Procedures p Left Total Knee Arthroplasty - Nghia Ashton MD Height/Weight Height: 5 ft 6 in Weight: 122.2 kg Allergies Allergy/AdvReac Type Severity Reaction Status Date / Time adhesive Allergy Intermediate Hives Verified 02/10/25 08:59 latex Allergy Intermediate Hives Verified 02/10/25 08:59 Penicillins Allergy Intermediate Hives Verified 02/10/25 08:59 atorvastatin AdvReac Severe Muscle Pain Verified 02/10/25 08:59 metformin AdvReac Severe Diarrhea Verified 02/10/25 08:59 Medications Home Medications Medication Instructions Recorded Confirmed Last Taken Auto Titrating CPAP See Rx Instructions .Route 02/28/21 02/10/25 Unknown .COMPLEX #1 ea cyanocobalamin (vitamin B-12) 1,000 mcg PO DAILY #90 tabs 01/02/23 02/10/25 Unknown 1,000 mcg tablet diclofenac sodium 3 % topical gel 1 applic topical BID #100 grams 08/15/23 02/10/25 Unknown pen needle, diabetic 32 gauge x #100 ea 03/03/24 11/02/24 Unknown " (BD Ultra-Fine Thelma Pen Needle) hydrocodone 5 mg-acetaminophen 325 1 tab PO TID #21 tabs 07/05/24 02/10/25 Unknown mg tablet Lantus Solostar U-100 Insulin 100 See Rx Instructions .Route 08/06/24 02/10/25 Unknown unit/mL (3 mL) subcutaneous pen .COMPLEX #15 mL (insulin glargine) aspirin 81 mg chewable tablet See Rx Instructions .Route 10/28/24 02/10/25 Unknown .COMPLEX #90 tabs Medium Res Med Sleep apnea mask #1 ea 11/02/24 11/02/24 Unknown blood-glucose sensor (FreeStyle #6 ea 01/07/25 Unknown Yumi 3 Sensor device) bupropion HCl 200 mg tablet,12 hr See Rx Instructions .Route 01/07/25 02/10/25 Unknown sustained-release .COMPLEX #180 ea fluticasone propionate 50 2 spray intranasal HS #9.9 grams 01/07/25 02/10/25 Unknown mcg/actuation nasal spray,suspension (Allergy Relief (fluticasone)) levothyroxine 125 mcg tablet See Rx Instructions .Route 01/07/25 02/10/25 Unknown .COMPLEX #90 tabs losartan 100 1 tab PO DAILY #90 tabs 01/07/25 02/10/25 Unknown mg-hydrochlorothiazide 25 mg tablet omeprazole 40 mg capsule,delayed 40 mg PO DAILY #90 caps 01/07/25 02/10/25 Unknown release pregabalin 75 mg capsule (Lyrica) 75 mg PO BID #180 caps 01/07/25 02/10/25 Un known rosuvastatin 5 mg tablet 5 mg PO DAILY #90 tabs 01/07/25 02/10/25 Unknown semaglutide 2 mg/dose (8 mg/3 mL) 2 mg (0.75 mL) subcut WK #9 mL 01/07/25 02/10/25 Unknown subcutaneous pen injector trazodone 50 mg tablet 100 mg (2 x 50 mg) PO HS #180 tabs 01/07/25 02/10/25 Unknown creatine monohydrate 1 dose PO DAILY 02/10/25 02/10/25 Unknown Celebrex 02/16/25 Unknown Additional Notes: Does not take Lantus routinely- only as needed which is rare now that she has stopped steroid injections for pain control Past Medical History Medical History Anxiety Diabetes Diabetic neuropathy Feet GERD (gastroesophageal reflux disease) well controlled and stable History of COVID-19 10/2024 AND 01/2022- Mild cold symptoms > resolved Hx of chest pain - 09/2024- evaluated by [facility] cardio, non cardiac related, per pt; possibly r/t anxiety - no chest pain since Sep 2024 Hypercholesteremia Hypertension Hypothyroidism Morbid obesity Osteoarthritis Rheumatoid arthritis No longer following with rheum - did not want the RA medications - RA stable- uses conservative measures Sleep apnea non-compliant w/ CPAP- has not been using recently Exercise / Class Metabolic Activity II 4-5 Yardwork/Stairs/Walk up hill (one flight of stairs - no chest pain or SOB ) Past Family History Family History Grandmother (Maternal) Breast cancer Heart disease Grandmother (Paternal) Breast cancer Myocardial infarction Father Lung cancer Diabetes Hypertension Mother Colonic polyp Hypertension Grandfather (Paternal) Heart disease Myocardial infarction Denies family history of Ovarian cancer Prostate cancer Alzheimer disease Bipolar disorder Depression COPD (chronic obstructive pulmonary disease) Colorectal cancer Stroke Asthma Past Surgical History Surgical History History of abdominoplasty History of back surgery History of section History of colonoscopy History of endometrial ablation History of partial hysterectomy Hx of cholecystectomy Status post right knee replacement (06/2022) Past Anesthesia History No Hx of Anesthesia Complications and No Family Hx of Anesthesia Complications History of PONV No Hx of PONV and No Hx of Motion Sickness Social History Smoking Status: Former smoker Do You Dip or Chew Tobacco: No Smoking End Date: QUIT ~33 YRS AGO Hx Alcohol Use: Yes Alcohol type: beer, wine and hard liquor alcohol intake frequency: a few times a month Hx Substance Use: No substance use type: does not use Review of Systems Patient denies chest pain, shortness of breath, dyspnea on exertion, cough, wheezing, palpitations. No hx of seizures, stroke, MD. No hx of blood clots or blood transfusions Physical Exam Vital Signs VITALS BP 145/89 P 89 TEMP 98.0 SP02 96% RESP 16 Constitutional no acute distress ENMT Mouth: no TMJ clicking Thyromental Distance: > or= 3.5 Finger Breadths Mallampati Class: II [place] to molar Neck neck extension not limited Respiratory normal respiratory effort; no respiratory distress Auscultation: lungs clear to auscultation bilaterally; no wheezes Cardiovascular Rate/Rhythm: regular rate and regular rhythm Heart Sounds: no murmur Vessels: no carotid bruit Musculoskeletal Spine: no pain with cervical ROM Extremities: extremities normal to inspection Psychiatric Orientation: alert Lab Results Anesthesia Preop Results Results Anesthesia Widget: WBC 5.73 K/ul (4.8-10.8) 02/16/25 Hgb 13.5 g/dl (12.0-16.0) 02/16/25 Hct 40.1 % (37.0-47.0) 02/16/25 Plt 271 K/uL (130-400) 02/16/25 Na 141 mmol/L (136-145) 02/16/25 K 4.3 mmol/L (3.5-5.1) 02/16/25 Cl 105 mmol/L (98-107) 02/16/25 CO2 30 mmol/L (21-32) 02/16/25 BUN 14 mg/dl (6-23) 02/16/25 Creat 1.04 mg/dl (0.6-1.2) 02/16/25 Glucose Level 226 mg/dl (70-99(Fasting)) H 02/16/25 PT 10.2 Seconds (9.0-12.0) 02/16/25 PTT 28 Seconds (21-31) 02/16/25 INR 0.9 (0.9-1.1) 02/16/25 HA1c 6.8 % (4.5-5.6) H 02/16/25 Blood Type B Positive 02/16/25 Antibody Screen NEGATIVE 02/16/25 Testing Electrocardiogram Date: 10/03/24 Findings: + NSR @ (78bpm) Normal EKG per cardio Chest X-Ray Date: 10/03/24 Findings: + NAD Echocardiogram Date: 10/04/24 EF: 55-59% LV Function: normal RWMA: + none Other Findings: + diastolic dysfunction; no LVH Valvular Disease: + no significant valvular disease RV cavity size and function is normal No pericardial effusion Stress Test Date: 10/04/24 Type: nuclear Lexiscan nuclear stress test negative for ischemia. LV EF calculated at 63% Gated SPECT images reveals normal myocardial thickening and wall motion Cervical Spine Date: 02/16/25 FINDINGS: There is moderate degenerative disc disease at the mid and lower cervical spine. No fracture or subluxation. No abnormal translation seen with flexion and extension. IMPRESSION: No abnormal translation seen.
--- NOTE | 2025-03-03 08:09 | History & Physical Report ---
Date of Service March 03, 2025 Assessment & Plan (1) Left knee DJD: 59-year-old female with multiple medical comorbidities including significant obesity, diabetes, hypertension, hypothyroidism and gastroesophageal reflux disease now 2 and half years out from right knee replacement without left knee DJD. Her symptoms have progressed over the past year. She is failed conservative treatment would like to have her left knee replaced. Plan: Organ to take her to the operating do left total knee replacement. The risk and benefit of this procedure explained. Informed consent was obtained. She did have a stress test which was negative for cardiac ischemia. She will need to hold her Ozempic 1 week preop. She is planned to be discharged home using home health. Will use aspirin for DVT prophylaxis. (2) Seronegative rheumatoid arthritis: (3) Status post total right knee replacement: (4) Benign essential hypertension: (5) Hypothyroidism: (6) Hypercholesterolemia: (7) Diabetes mellitus: History of Present Illness Chief Complaint: . Persistent left knee pain discomfort and stiffness. Primary Care Provider: CEE Winkler . The patient is a 59-year-old female now 2 and half years out from a right knee replacement with persistent progressive left knee pain discomfort. She been through extensive conservative treatment including injections which become less successful over time. She is happy with the right knee would now like to have her left knee fixed. She has global pain but a little bit more on the medial side. The more she is up and on the leg the more it hurts and she limps more as the day goes on. She has nighttime discomfort. Allergies Allergy/AdvReac Type Severity Reaction Status Date / Time adhesive Allergy Intermediate Hives Verified 02/10/25 08:59 latex Allergy Intermediate Hives Verified 02/10/25 08:59 Penicillins Allergy Intermediate Hives Verified 02/10/25 08:59 atorvastatin AdvReac Severe Muscle Pain Verified 02/10/25 08:59 metformin AdvReac Severe Diarrhea Verified 02/10/25 08:59 Home Medications Medication Instructions Recorded Confirmed Type Auto Titrating CPAP See Rx Instructions .Route 02/28/21 02/10/25 Rx .COMPLEX #1 ea cyanocobalamin (vitamin B-12) 1,000 mcg PO DAILY #90 tabs 01/02/23 02/10/25 Rx 1,000 mcg tablet diclofenac sodium 3 % topical gel 1 applic topical BID #100 grams 08/15/23 02/10/25 Rx pen needle, diabetic 32 gauge x #100 ea 03/03/24 11/02/24 Rx 5/32" (BD Ultra-Fine Thelma Pen Needle) hydrocodone 5 mg-acetaminophen 325 1 tab PO TID #21 tabs 07/05/24 02/10/25 Rx mg tablet Lantus Solostar U-100 Insulin 100 See Rx Instructions .Route 08/06/24 02/10/25 Rx unit/mL (3 mL) subcutaneous pen .COMPLEX #15 mL (insulin glargine) aspirin 81 mg chewable tablet See Rx Instructions .Route 10/28/24 02/10/25 Rx .COMPLEX #90 tabs Medium Res Med Sleep apnea mask #1 ea 11/02/24 11/02/24 Rx blood-glucose sensor (FreeStyle #6 ea 01/07/25 Rx Yumi 3 Sensor device) bupropion HCl 200 mg tablet,12 hr See Rx Instructions .Route 01/07/25 02/10/25 Rx sustained-release .COMPLEX #180 ea fluticasone propionate 50 2 spray intranasal HS #9.9 grams 01/07/25 02/10/25 Rx mcg/actuation nasal spray,suspension (Allergy Relief (fluticasone)) levothyroxine 125 mcg tablet See Rx Instructions .Route 01/07/25 02/10/25 Rx .COMPLEX #90 tabs losartan 100 1 tab PO DAILY #90 tabs 01/07/25 02/10/25 Rx mg-hydrochlorothiazide 25 mg tablet omeprazole 40 mg capsule,delayed 40 mg PO DAILY #90 caps 01/07/25 02/10/25 Rx release pregabalin 75 mg capsule (Lyrica) 75 mg PO BID #180 caps 01/07/25 02/10/25 Rx rosuvastatin 5 mg tablet 5 mg PO DAILY #90 tabs 01/07/25 02/10/25 Rx semaglutide 2 mg/dose (8 mg/3 mL) 2 mg (0.75 mL) subcut WK #9 mL 01/07/25 02/10/25 Rx subcutaneous pen injector trazodone 50 mg tablet 100 mg (2 x 50 mg) PO HS #180 tabs 01/07/25 02/10/25 Rx creatine monohydrate 1 dose PO DAILY 02/10/25 02/10/25 History Blood-glucose sensor (Freestyle #2 ea 02/18/25 Rx Yumi 3 Plus) celecoxib 200 mg capsule (Celebrex) 200 mg PO BID #180 caps 02/18/25 Rx Past Med/Surg History Problem List Encounter for pre-operative examination Osteoarthritis, knee Left knee DJD Seronegative rheumatoid arthritis OAB (overactive bladder) Urinary frequency Tinea unguium Inflammatory arthritis Status post total right knee replacement Left ankle sprain Joint pain Right knee DJD Right knee pain Inguinal pain Calf pain Bruising Vitamin B12 deficiency Diabetic neuropathy Obstructive sleep apnea Excessive sleepiness Headache Esophageal reflux disease Benign essential hypertension Hypothyroidism Hypercholesterolemia Diabetes mellitus Medical History Anxiety Osteoarthritis Hypercholesteremia Rheumatoid arthritis No longer following with rheum - did not want the RA medications - RA stable- uses conservative measures Hx of chest pain - 09/2024- evaluated by [facility], non cardiac related, per pt; possibly r/t anxiety - no chest pain since Sep 2024 Morbid obesity Diabetic neuropathy Feet History of COVID-19 10/2024 AND 01/2022- Mild cold symptoms > resolved Hypothyroidism Hypertension GERD (gastroesophageal reflux disease) well controlled and stable Diabetes Sleep apnea non-compliant w/ CPAP- has not been using recently Surgical History Status post right knee replacement (06/2022) History of endometrial ablation History of partial hysterectomy History of abdominoplasty History of colonoscopy History of back surgery Hx of cholecystectomy History of section Family History Grandmother (Maternal) Breast cancer Heart disease Grandmother (Paternal) Breast cancer Myocardial infarction Father Lung cancer Diabetes Hypertension Mother Colonic polyp Hypertension Grandfather (Paternal) Heart disease Myocardial infarction Denies family history of Ovarian cancer Prostate cancer Alzheimer disease Bipolar disorder Depression COPD (chronic obstructive pulmonary disease) Colorectal cancer Stroke Asthma Social History Smoking Status: Former smoker Tobacco Type: Cigarettes Age Started Using Tobacco: 16; Age Quit Using Tobacco: 33; packs per day: 1; Second Hand Exposure: No; Do You Dip or Chew Tobacco: No; Hx Alcohol Use: Yes Alcohol type: beer, wine and hard liquor Alcohol Intake Frequency: 2-4 x/Month Hx Substance Use: No Preferred Language: Tongan Communication Ability: Effective Visual Impairment: No Limitations Hearing Ability: Normal Handstitching Machine Collar Feller Required: No Beliefs That Will Affect Care: None marital status: Current Living Situation: Spouse current occupational status: employed current occupation: [employer] How many Children do You have: 2 Feels Safe at Home: Yes Childhood Exposure to Second-Hand Smoke: Yes Seatbelt Use: always Sunscreen Use: Yes Assistive Devices: CPAP and Glasses Review of Systems All systems reviewed & are unremarkable except as noted in HPI & below. Physical Exam . Physical examination reveals a pleasant middle-age female. Looks to be in pretty good health. Examination both knees reveal patient ambulates independently. Examination left knee reveals slight varus alignment to her knee. Moderate soft tissue envelope. Moderate-sized knee effusion. Range of motion 5-1 25. No pain with hip motion. Examination of the right knee reveals a well-healed incision. She got anatomic alignment to the knee. Range of motion 0-1 25. Constitutional WD/WN, vitals as above Respiratory normal respiratory effort, lungs clear to auscultation Cardiovascular RRR, no murmur, no edema Gastrointestinal (Abdomen) normal bowel sounds, soft, nontender, no hepatosplenomegaly Results & Data Results & Data Laboratory Results . Diagnostic Findings . X-rays of the left knee reviewed. Shows advanced medial compartment arthritis. Got near complete loss of the medial joint space. This has progressed over the past year. Right knee replaced looks in good position without problems. PG Care Time/CCT Total # of Minutes Spent Total Time Spent with Patient: Total time spent is greater than 50% in coordination of care (as documented) at patient's floor/unit and/or counseling patient: Coding Level of Care Code None Diagnoses Left knee DJD M17.12 Seronegative rheumatoid arthritis M06.00 Status post total right knee replacement Z96.651 Benign essential hypertension I10 Acquired hypothyroidism E03.9 Hypothyroidism type: acquired Hypercholesterolemia E78.00 Type 2 diabetes mellitus without complication, without long-term current use of insulin E11.9 Diabetes mellitus type: type 2 Diabetes mellitus buttermaker insulin use: without correction use Diabetes mellitus complication status: without complication (5) Hypothyroidism Hypothyroidism type: acquired Qualified Code(s): E03.9 - Hypothyroidism, unspecified (7) Diabetes mellitus Diabetes mellitus type: type 2 Diabetes mellitus correction insulin use: without buttermaker use Diabetes mellitus complication status: without complication Qualified Code(s): E11.9 - Type 2 diabetes mellitus without complications
[~2025-03-09 06:27] MED LIST changes: -ACETAMINOPHEN 500 MG TAB PO SCH; -BUPIVACAINE 0.5 % 5 MG/1 ML PF 10ML VIAL ONE; -BUPIVACAINE LIPOSOME/PF 266 MG, BUPIVACAINE/EPINEPHRINE 50 ML, SODIUM CHLORIDE 0.9% 30 ... INFIL SCH; -CeleBREX 200 MG CAP PO SCH; -EPINEPHrine INJ 1 MG/ML AMP ONE; -FAMOTIDINE 20 MG TAB PO SCH; -LR 500ML BOLUS, THEN 15ML/HR IV SCH; -LR 60ML/HR IV SCH; -METOCLOPRAMIDE HCL 10 MG TABLET PO SCH; -ROPIVACAINE 0.5% 5 MG/ML 30 ML VIAL ONE; -Scopolamine 1 MG TDSY TD SCH; -TRANEXAMIC ACID 1,000 MG **IV Intra-op IV SCH; -ceFAZolin 2000MG 2,000 MG/15 ML SYR IV SCH
[2025-03-09] MEDS ORDERED: BUPIVACAINE 0.25% PF 30 ML VIAL ONE (06:38)
[2025-03-09] MEDS ORDERED: BUPIVACAINE 0.5 % 5 MG/1 ML PF 10ML VIAL ONE (06:38)
--- NOTE | 2025-03-09 06:41 | History & Physical Bridge Note ---
Date of Service March 09, 2025 History & Physical Bridge Note I have examined the patient, reviewed the History & Physical and in the interval since the performance of the History & Physical I have noted the following changes of clinical significance: no changes noted
[2025-03-09] MEDS ORDERED: Nursing to Pharmacy Communication SCH (06:45)
[2025-03-09] MEDS: LR 500ML BOLUS, THEN 15ML/HR IV SCH (07:00)
[2025-03-09] MEDS: METOCLOPRAMIDE HCL 10 MG TABLET PO SCH (07:08)
[2025-03-09] MEDS: FAMOTIDINE 20 MG TAB PO SCH (07:08)
[2025-03-09] MEDS: dexAMETHasone**PF** 10 MG/ML VIAL IV SCH (07:08)
[2025-03-09] MEDS: LR 60ML/HR IV SCH (07:09)
[2025-03-09] MEDS: CeleBREX 200 MG CAP PO SCH (07:09)
[2025-03-09] MEDS: ACETAMINOPHEN 500 MG TAB PO SCH ×2 (07:09→14:10)
[2025-03-09] MEDS ORDERED: fentaNYL citrate PF 100 MCG/2 ML VIAL ONE (07:32)
[2025-03-09] MEDS ORDERED: MIDAZOLAM HCL 1 MG/ML 2ML VIAL ONE ×2 (07:32→08:21)
[2025-03-09] MEDS ORDERED: PROPOFOL IV EMULSION 10 MG/ML 100 ML VIAL IV ONE (07:38)
[2025-03-09] MEDS ORDERED: ONDANSETRON INJ 2 MG/ML 2 ML VIAL IV PRN (08:31)
[2025-03-09] MEDS ORDERED: ePHEDrine sulfate 50 MG/ML AMP IV PRN (08:31)
[2025-03-09] MEDS ORDERED: fentaNYL citrate PF 100 MCG/2 ML VIAL IV PRN (08:31)
[2025-03-09] MEDS ORDERED: ATROPINE SULFATE 0.1 MG/ML 10ML SYR IV PRN (08:31)
[2025-03-09] MEDS ORDERED: LIDOCAINE 2% 2 ML VIAL/AMP(20MG/ML) INFIL ONE (08:57)
[2025-03-09] MEDS: ceFAZolin 3000MG/72.5 ML BAG IV ONE (09:20)
[2025-03-09] MEDS ORDERED: PHENYLEPHRINE 100MCG/ML 5ML SYR ONE (09:26)
[2025-03-09] MEDS: ROPIV 0.5% 246mg, Ketorolac 30mg, EPINEPHrine 0.5mg in NSS INFIL SCH (09:48)
[2025-03-09] MEDS: ORTHO JOINT ANESTHETIC ONE (09:49)
[2025-03-09] MEDS: TRANEXAMIC ACID 1,000 MG **IV Intra-op IV SCH (10:10)
[2025-03-09] MEDS ORDERED: PROPOFOL IV EMULSION 10 MG/ML 20 ML VIAL IV ONE (10:32)
--- NOTE | 2025-03-09 11:05 | Operative Report ---
PG Post Operative Report Pre & Post Diagnosis Operation Date: 03/09/25 08:50 Pre-Op Diagnosis: Osteoarthritis, Left Knee Post-Op Diagnosis: Osteoarthritis, Left Knee I identified the patient and participated in the time-out.: Yes Procedure Operation Date: 03/09/25 08:50 Actual Procedures p Left Total Knee Arthroplasty(Left) - Nghia Ashton MD Surgeon Nghia Ashton MD Director Of Online Merchandising Drew Valle PA-C Estimated Blood Loss 50 Findings Consistent with Post-Op Diagnosis Operative findings reveal advanced left knee DJD. She had extensive grade 4 [id number] disease in the medial compartment. She had some spotty grade 4 changes laterally as well as in the patellofemoral compartment. Moderate-sized joint effusion. Osteophytes primarily medially. Specimens Left knee sent for pathology. Anesthesia Type Spinal MAC Complications none Disposition Accompanied Patient To Recovery: No Indications Patient is a 59-year-old female who said a several year history of bilateral knee pain discomfort is gotten worse over time. She did have her right knee replaced 2 and half years ago and doing well from this. She continues to be limited by left knee pain and discomfort and stiffness and swelling. She failed conservative measures. She elected proceed with total knee arthroplasty. Description of Procedure Operative implants consists of: 1. Biomet Vanguard size 60 left posterior stabilized femoral component. 2 Biomet size 67 tibial tray. 3. 10 mm posterior stabilized polyethylene insert. 4. 28 x 8 all poly patella. The patient was taken to the operating room, identified, placed on the operating table in the supine position. All conductors were appropriately padded. IV antibiotics provided by anesthesia team. A spinal anesthetic and adductor canal block had been Weida in the holding area. Herndon catheter was placed in sterile fashion. A left turn was then placed. The left lower extremity was then prepped and draped in usual sterile fashion. The left leg was elevated and exsanguinated with use of an Esmarch and the tourniquet was placed at 300 mmHg. An anterior approach to the left knee was then performed through a longitudinal incision centered over the patella. Sharp dissection was carried through subcutaneous tissue down the extensor mechanism. A medial parapatellar arthrotomy incision was made. Some subperiosteal dissecti on was carried out medially. The fat pad was dissected from the patella tendon. The lateral patellofemoral ligament was released. Patella subluxated laterally the knee was flexed. The osteophytes taken off distal femur. The ACL and PCL released from distal femur and the tibia subluxated anteriorly. The external treatment LYMErix then placed on the interface the tibia and adjusted 14 mm medially. The proximal tibial cut was made removed out of millimeter bone from the medial side. The tibia sized to a size 67. Attention drawn the femur. The distal femur was done with a sharp drill. Intramedullary canal was suction. A left 5 degree valgus cutting guide was placed. The distal femoral cutting block was pinned in place. Distal femoral cut was made take an additional 3 mm of bone off distal femur. The femur was then sized to a size 60. The size almost exactly was 60. The AP cutting block was pinned parallel to the epicondylar axis which was 4 degrees of external rotation. The anterior cut, anterior chamfer, posterior cut, posterior chamfer cuts were made. The box cutting guide was placed in a just slightly lateral and the box cut was made. The knee was flexed. The remnants of the medial and lateral menisci were excised. The osteophytes taken off the posterior aspect of femur. A trial femoral component was placed. The tibial tray was pinned in Audrey external r otation and the drill and stem punch used. Defect in proximal tibia for the tibial tray. The knee was then trialed and the 10 mm insert fit most appropriately. Attention drawn the patella. The patella was cleaned of all soft tissues. Patella thickness measured about 18 mm in thickness was cut down to 13. Was sized to a size 28 patella. The lug holes were drilled for the 28 patella. The lateral osteophytes removed. The patella button was placed. Knee was taken through range of motion and the patella tracked nicely with no thumbs test. Attention then drawn to placement permanent components. Nupathe all trial components were removed. Bone plug was placed in the distal femoral limb of blood loss. A double batch Palacos G cement was mixed. BiomData Eliteguard size 60 left posterior stabilized femoral component, size 67 tibial tray, a 10 mm posterior stabilized polyethylene insert, 28 x 8 all poly patella then cemented in place. The knee was brought out into full extension till cement hardened. A final symmetric was performed. The pericapsular tissues were injected with 100 cc of Ortho mix. The patient did receive 1 g tranexamic acid. The tourniquet was then let down for final tourniquet time of 53 minutes. Hemostasis assured with electrocautery. Extensor Meclomen closed with combination 1 PDS suture #1 Vicryl suture in a [id number] fashion. Extensor Meclomen checked and found to be intact. Subcutaneous tissue then closed with 2 Dexon suture in buried interrupted fashion skin was closed skin mari. Leg was then cleaned and dried and a sterile dressing with Xeroform, 4 fours, sterile cast padding, Leroy bandage were applied. Patient then transferred to the recovery room in stable condition. Patient tolerated procedure well and there were no complications. Drew Valle, my physician placement assistant, was present for the entire procedure. His assistance was essential and required for appropriate patient positioning, prepping and draping, surgical exposure, performing the technical details of the operation, placement the implants, closure of the wound, and placement of the sterile bandage. I attest to the content of the Intraoperative Record and any orders documented therein. Any exceptions are noted below.
[2025-03-09] MEDS: INSULIN HUMAN REGULAR PER UNIT 4 UNITS in SYRINGE 3.96 ML IV ONE (11:40)
--- NOTE | 2025-03-09 11:46 | XRay Report ---
XR knee LT 1 or 2V routine CLINICAL HISTORY: Surgical Post Op COMPARISON: None FINDINGS: Left knee prosthesis shows no hardware complication. There is expected soft tissue gas. Sk in mari are present. IMPRESSION: Unremarkable postoperative exam. ACT 112: Negative or not required by law. Electronically signed by: Jayden Costa M.D. 03/09/2025 11:45 AM
--- NOTE | 2025-03-09 12:03 | Anesthesiology Progress Note ---
Date of Service March 09, 2025 Anesthesia Post Procedure Vital Signs Vital Signs: Temp Pulse Resp BP Pulse Ox O2 Del Method O2 Flow Rate 03/09/25 11:50 82 22 135/85 99 Room Air 03/09/25 11:40 36.4 C L 80 15 127/82 99 Room Air 03/09/25 11:30 83 14 142/75 H 100 Room Air 03/09/25 11:20 85 20 132/77 98 Room Air 03/09/25 11:10 83 13 127/73 100 Oxymask 8 03/09/25 11:00 36.3 C L 84 16 129/66 99 Oxymask 9 03/09/25 06:42 36.5 C 87 18 133/101 H 96 Room Air Pain Intensity Left Knee: Pain Intensity: 5 Transfer of Care Handoff Completed per policy Notes Mental Status: alert / awake / arousable Patient Amnestic to Procedure: Yes Nausea / Vomiting: adequately controlled Pain: adequately controlled Airway Patency, RR, SpO2: stable & adequate BP & HR: stable & adequate Hydration State: stable & adequate Neuraxial Anesthesia: was administered and sensory block is resolving Anesthetic Complications: no major complications apparent and Pt Satisfied with anesthetic care
[2025-03-09] MEDS: NovoLIN-R INSULIN PER UNIT CHARGE ONE (12:06)
[2025-03-09] MEDS ORDERED: PHARMACY GLYCEMIC MGMT CONSULT PRN (12:14)
[2025-03-09] MEDS ORDERED: ALUMINUM/MAGNESIUM SUSP 30 ML UDC PO PRN (12:14)
[2025-03-09] MEDS ORDERED: DEXTROSE 50% 50 ML SYRINGE IV PRN (12:14)
[2025-03-09] MEDS ORDERED: GLUCOSE 10 TAB/TUBE PO PRN (12:14)
[2025-03-09] MEDS ORDERED: bisacodyL 10 MG SUPP PR PRN (12:14)
[2025-03-09] MEDS ORDERED: GLUCOSE 40% GEL 15 GM TUBE PO PRN (12:14)
[2025-03-09] MEDS ORDERED: METOCLOPRAMIDE HCL INJ 5 MG/ML 2 ML VIAL IV PRN (12:14)
[2025-03-09] MEDS ORDERED: NON-FORMULARY MEDICATION (Insulin Glargine [Lantus Solostar U-100 Insulin] 100 unit/mL (3 SCH (12:14)
[2025-03-09] MEDS ORDERED: NON-FORMULARY MEDICATION (Auto Titrating Cpap misc) SCH (12:14)
[2025-03-09] MEDS ORDERED: INJECTOR SQ SCH (12:14)
[2025-03-09] MEDS ORDERED: CARBOHYDRATES FOR HYPOGLYCEMIA PO PRN (12:14)
[2025-03-09] MEDS ORDERED: SEMAGLUTIDE SQ SCH (12:14)
[2025-03-09] MEDS ORDERED: HYDROmorphone INJ 0.5 MG/0.5 ML SYR IV PRN (12:14)
[2025-03-09] MEDS ORDERED: GLUCAGON FOR INJ 1 MG VIAL SQ PRN (12:14)
[2025-03-09] MEDS ORDERED: NALOXONE HCL 0.4 MG/1 ML VIAL/CARP IV PRN (12:14)
[2025-03-09 12:17] VITALS: RESP 16
[2025-03-09] MEDS: KETOROLAC 30 MG/ML VIAL IV SCH (12:38)
[2025-03-09] MEDS: SODIUM CHLORIDE 0.9% 1,000 ML IV SCH (12:38)
[2025-03-09] MEDS: INSULIN ASPART PER UNIT CHARGE SC SCH (13:00)
--- NOTE | 2025-03-09 13:45 | Pharmacy Report ---
Pharmacy Glycemic Short Note 2 - Date of Service March 09, 2025 - Glycemic Short BSG Results (Last 24 hours): 03/09/25 03/09/25 03/09/25 06:36 11:03 11:04 POC Glucose 198 H 269 H 247 H 03/09/25 12:16 POC Glucose 260 H OUTPATIENT ANTIDIABETIC REGIMEN: * Lantus 20-50 units - listed on med list, however confirmed with patient/nurse not taking * semaglutide 2 mg SQ weekly ASSESSMENT: * 59 year old s/p surgery, POD 0 - postop BSG >200, type 2 diabetic. Pharmacy consulted for glycemic management. Will give Lantus ~0.2 units/kg x 1 now to cover steroids given preoperatively. Will start novolog for now as weight based stress 3 dosing. PLAN FOR INPATIENT GLYCEMIC CONTROL: * Hold outpatient oral diabetes medications * Basal insulin * Lantus 30 units x 1 * Bolus insulin * NovoLog per scale ACHS or Q6hrs while NPO * Goal Range: Low 110 mg/dL - High 140 mg/dL * Correction Factor: 15 mg/dL/unit * Nutritional / Prandial insulin per carb ratio of 1 unit per 4 grams CHO consumed
[2025-03-09] MEDS: LANTUS PER UNIT CHARGE SC ONE (13:50)
[2025-03-09] MEDS: TRANEXAMIC ACID / 0.7% NACL 1,000 MG/100 ML BAG IV SCH (17:21)
[2025-03-09] MEDS: ASCORBIC ACID 500 MG TAB PO SCH (17:26)
[2025-03-09] MEDS: ceFAZolin 2000MG 2,000 MG/15 ML SYR IV SCH (17:29)
[2025-03-09] MEDS: MAGNESIUM HYDROXIDE SUSP 30 ML UDC PO PRN (17:40)
[2025-03-09] MEDS: oxyCODONE HCL IR 5 MG TAB (IMMEDIATE RELEASE) PO PRN (17:45)
[2025-03-09] MEDS ORDERED: SENNA 8.6 MG TAB PO SCH (21:00)
[2025-03-09] MEDS: DICLOFENAC SOD 1% GEL 100 GM TUBE EXT SCH (21:07)
[2025-03-09] MEDS: FLUTICASONE PROPIONATE NA SPR 16 GM BTL NAE SCH (21:07)
[2025-03-09] MEDS: LANTUS PER UNIT CHARGE SC SCH (21:16)
[2025-03-09] MEDS: SENNA 8.6 MG TAB PO SCH (21:17)
[2025-03-09] MEDS: PREGABALIN 75 MG CAP PO SCH (21:17)
[2025-03-09] MEDS: DOCUSATE SODIUM 100 MG CAP PO SCH (21:17)
[2025-03-09] MEDS: traZODone HCL 100 MG TAB PO SCH (21:18)
[2025-03-09] MEDS: ASPIRIN 81 MG ECTAB PO SCH (21:19)
[2025-03-10] MEDS: INSULIN ASPART PER UNIT CHARGE SC SCH (00:21)
[2025-03-10 06:18] LABS: Hemoglobin 11.1 g/dl (12.0-16.0); Mean Corpuscular Hemoglobin 29.7 pg (25.0-34.0); Mean Corpuscular Hgb Conc 34.7 g/dL (32.0-36.0); Mean Corpuscular Volume 85.6 fL (80.0-100.0); Mean Platelet Volume 10.6 fL (9.4-12.4); Platelet Count 255 K/uL (130-400); RDW Coefficient of Variation 13.2 % (11.5-14.5); RDW Standard Deviation 41.1 fL (36.4-46.3); Red Blood Count 3.74 M/uL (4.20-5.40); White Blood Count 12.89 K/ul (4.8-10.8)
[2025-03-10 06:32] LABS: BUN Creatinine Ratio 22.8 (10-20); Calcium 8.2 mg/dl (8.6-10.3); Creatinine Clr Calc Pharmacy 81.9 ml/min; Potassium 4.1 mmol/L (3.5-5.1)
[2025-03-10] MEDS: ceFAZolin 2,000 MG/15 ML IV PUSH IV ONE (06:49)
[2025-03-10 07:35] VITALS: TEMP 98.1
[2025-03-10] MEDS: dexAMETHasone 10 MG in SYRINGE 0 ML IV SCH (08:22)
[2025-03-10] MEDS: CYANOCOBALAMIN (B-12) 500 MCG TABLET PO SCH (08:22)
[2025-03-10] MEDS: LOSARTAN/HCTZ 50/12.5MG TAB PO SCH (08:22)
[2025-03-10] MEDS: ROSUVASTATIN CALCIUM 5 MG TAB PO SCH (08:23)
[2025-03-10] MEDS: MULTIVITAMIN TAB PO SCH (08:23)
[2025-03-10] MEDS: PANTOprazole 40 MG TAB PO SCH (08:23)
--- NOTE | 2025-03-10 08:32 | Orthopedic Progress Note ---
Date of Service March 10, 2025 Assessment & Plan (1) Status post total left knee replacement: * Continue Current Treatment * Disposition: home * Daily treatment: Physical Therapy/ Occupational Therapy per protocol * Weight bearing status: WBAT LLE * Continue to monitor for ABLA * Pain control * DVT prophylaxis, ASA/Eliquis * Office/hospital f/u 2 weeks for progress check and staple/suture removal * Plan for discharge today pending PT/OT clearance Subjective .Active Problems: S/p left TKA 59 y/o female s/p left TKA. Doing well overall, pain managed and improved function. Denies fever/chills, chest pain/SOB, nausea/vomiting. Otherwise no complaints. Review of Systems All systems reviewed & are unremarkable except as noted in HPI & below. Physical Exam . * General: Alert and oriented, no acute distress * Constitutional: well-developed, well-nourished. * Respiratory: Normal respiratory effort, no distress * Gastrointestinal: No tenderness to palpation, no rigidity or guarding. * Skin: No rash or lesion. * Neurologic: Grossly normal * Musculoskeletal: Left knee surgical dressing CDI, not removed for exam. Otherwise, this deformity or swelling skin changes to the left leg noted. Mild diffuse TTP of the distal thigh and knee region. Otherwise no tenderness of the proximal thigh, lower leg, foot/ankle. ROM knee flexion 0-100 degrees with mild pain. AROM for/ankle intact. Sensation intact plantar/dorsal foot. Brisk capillary fill. Results & Data Results & Data Laboratory Results . Diagnostic Findings . Knee X-Ray 03/09/25 10:58 XR knee LT 1 or 2V routine CLINICAL HISTORY: Surgical Post Op COMPARISON: None FINDINGS: Left knee prosthesis shows no hardware complication. There is expected soft tissue gas. Skin mari are present. IMPRESSION: Unremarkable postoperative exam. ACT 112: Negative or not required by law. Electronically signed by: Jayden Costa M.D. 03/09/2025 11:45 AM PG Care Time/CCT Total # of Minutes Spent Total Time Spent with Patient: Total time spent is greater than 50% in coordination of care (as documented) at patient's floor/unit and/or counseling patient: Coding Level of Care Code 91660 Post Operative Follow-Up Diagnoses Status post total left knee replacement Z96.652
[2025-03-10] MEDS: LANTUS PER UNIT CHARGE SC ONE (08:33)
[2025-03-10] MEDS: ONDANSETRON INJ 2 MG/ML 2 ML VIAL IV PRN (09:33)
[2025-03-10 11:05] VITALS: BP 121/84; O2SAT 98
[2025-03-10 11:25] VITALS: PULSE 79
[2025-03-10] MEDS ORDERED: PNEUMOCOCCAL VACCINE (PCV20) 20-VAL CONJ-DIP CRM/PF 0.5 ML SYR IM ONE (12:32)
[2025-03-11] MEDS ORDERED: CeleBREX 200 MG CAP PO SCH (12:00)
== END 2025-03-10 12:00 | disposition home or self-care (01) ==
LOC: ASU 06:27 → 3E 06:27